=== PATIENT | female | born 1950 | race Caucasian/White ===

== ENCOUNTER 2018-02-16 07:00 | Day surgery (SDC) | payer OTHER ==
[~2018-02-16 07:00] MED LIST: ECOTRIN81 MG PO; SINGULAIR10 MG PO; [UNRECOGNIZED DRUG - OTHER] PO
[2018-02-16] MEDS ORDERED: ULTRACET PO (12:12)
[2018-02-16] MEDS ORDERED: MACROBID 100 M100 MG PO (12:12)
== END 2018-02-16 15:00 | disposition home or self-care (01) ==
LOC: CIR.AMB 07:00
DX: N81.11 Cystocele, midline (principal)